=== PATIENT | male | born 1990 | race African-American/Black ===

== ENCOUNTER 2016-09-13 20:22 | Emergency (ER) | payer MEDICAID, OTHER ==
[~2016-09-13] VITALS: Ht 175.3 cm; Wt 79.0 kg
[~2016-09-13 20:22] MED LIST: COGENTIN; SEROQUEL
[2016-09-13 23:00] VITALS: BP 132/80
[2016-09-14] MEDS ORDERED: QUETIAPINE FUMARATE 25MG TABLET PO SCH (21:00)
== END 2016-09-14 00:42 | disposition home or self-care (01) ==
LOC: ER 20:22
DX: F41.9 Anxiety disorder, unspecified (principal); J06.9 Acute upper respiratory infection, unspecified; F20.9 Schizophrenia, unspecified; F31.9 Bipolar disorder, unspecified; J45.909 Unspecified asthma, uncomplicated; Z91.14 Patient's other noncompliance with medication regimen
CPT/HCPCS: 99283

== ENCOUNTER 2016-10-08 11:28 | Emergency (ER) | payer OTHER ==
[~2016-10-08] VITALS: Ht 180.3 cm; Wt 90.0 kg
[2016-10-08 11:28] VITALS: BP 126/78
== END 2016-10-08 14:46 | disposition left against medical advice (07) ==
LOC: ER 11:31
DX: R11.2 Nausea with vomiting, unspecified (principal); J45.909 Unspecified asthma, uncomplicated; F31.9 Bipolar disorder, unspecified
CPT/HCPCS: J7042

== ENCOUNTER 2016-10-23 04:25 | Emergency (ER) | payer OTHER ==
[~2016-10-23] VITALS: Ht 180.3 cm; Wt 84.0 kg
[2016-10-23 04:30] VITALS: BP 121/71
[2016-10-23] MEDS ORDERED: ACETAMINOPHEN 325MG TABLET PO ONE (05:15)
== END 2016-10-23 05:31 | disposition home or self-care (01) ==
LOC: ER 04:38
DX: R07.9 Chest pain, unspecified (principal); F20.9 Schizophrenia, unspecified; F17.210 Nicotine dependence, cigarettes, uncomplicated; F12.10 Cannabis abuse, uncomplicated
CPT/HCPCS: 71010; 93005; 99284; Z7610

== ENCOUNTER 2017-07-14 03:00 | Emergency (ER) | payer MEDICAID, OTHER ==
[~2017-07-14] VITALS: Ht 188 cm; Wt 80.0 kg
[2017-07-14] MEDS ORDERED: IBUPROFEN 600MG TABLET PO STA (06:27)
[2017-07-14 06:55] LABS: BASOPHILS % 0.6 % (0.0-2.0); HEMOGLOBIN. 13.2 g/dL (14.0-18.0); LYMPHOCYTES % 25.5 % (20.0-50.0); MEAN CORPUSCULAR VOLUME 99.8 fL (80.0-94.0); MEAN PLATELET VOLUME 8.7 fl (7.4-10.4); MONOCYTES % 12.6 % (2.0-8.0); NEUTROPHILS % 58.3 % (40.0-76.0); PLATELET 267 x1000/uL (130-400); RED BLOOD CELL COUNT 4.01 mill/uL (4.7-6.1); RED CELL DISTRIBUTION WIDTH 13.2 % (11.6-14.6)
[2017-07-14 07:06] LABS: CARBON DIOXIDE 31 mEq/L (21-32); CHLORIDE 101 mEq/L (98-107); ETHANOL BLOOD < 10 mg/dL
[2017-07-14 07:34] LABS: KETONES URINE TRACE (NEGATIVE); LEUKOCYTE ESTERASE URINE NEGATIVE (NEGATIVE); NITRITE URINE NEGATIVE (NEGATIVE); OCCULT BLOOD URINE NEGATIVE (NEGATIVE); PROTEIN URINE TRACE (NEGATIVE); SPECIFIC GRAVITY URINE 1.038 (1.005-1.030)
[2017-07-14 07:45] LABS: CLARITY URINE TURBID (CLEAR); COLOR URINE YELLOW (YELLOW)
[2017-07-14 08:03] LABS: *AMPHETAMINES SCREEN URINE PRESUMTIVE POSITIVE (NEGATIVE); *BARBITURATES SCREEN URINE NEGATIVE (NEGATIVE); *BENZODIAZEPINES SCREEN URINE NEGATIVE (NEGATIVE); *COCAINE SCREEN URINE NEGATIVE (NEGATIVE); CANNABINOID URINE SCREEN PRESUMTIVE POSITIVE (NEGATIVE); METHADONE URINE SCREEN NEGATIVE (NEGATIVE); OPIATES URINE SCREEN NEGATIVE (NEGATIVE); PHENCYCLIDINE URINE SCREEN NEGATIVE (NEGATIVE)
[2017-07-14 14:16] VITALS: BP 117/77
== END 2017-07-14 16:20 | disposition home or self-care (01) ==
LOC: ER 03:00
DX: R45.851 Suicidal ideations (principal); F20.9 Schizophrenia, unspecified; J45.909 Unspecified asthma, uncomplicated; F15.10 Other stimulant abuse, uncomplicated; R07.9 Chest pain, unspecified
CPT/HCPCS: 36415; 80053; 80305; 80307; 80329; 81001; 85025; 93005; 99285; G0482

== ENCOUNTER 2019-03-08 05:00 | Emergency (ER) | payer MEDICAID ==
[~2019-03-08] VITALS: Ht 193 cm; Wt 80.0 kg
[2019-03-08] MEDS ORDERED: OLANZAPINE 5MG TABLET ODT PO ONE (07:15)
[2019-03-08 14:16] LABS: HEMATOCRIT. 37.7 % (42.0-52.0); HEMOGLOBIN. 12.8 g/dL (14.0-18.0); MEAN CORPUSCULAR VOLUME 97.3 fL (80.0-94.0); MEAN PLATELET VOLUME 8.8 fl (7.4-10.4); PLATELET 214 x1000/uL (130-400); RED BLOOD CELL COUNT 3.87 mill/uL (4.7-6.1); RED CELL DISTRIBUTION WIDTH 12.8 % (11.6-14.6)
[2019-03-08 14:23] LABS: CHLORIDE 98 mEq/L (98-107)
[2019-03-08 14:28] LABS: ETHANOL BLOOD < 10 mg/dL
[2019-03-08 15:26] LABS: PLATELET ESTIMATE NORMAL
[2019-03-08 15:43] LABS: CLARITY URINE CLEAR (CLEAR); COLOR URINE YELLOW (YELLOW); KETONES URINE NEGATIVE (NEGATIVE); LEUKOCYTE ESTERASE URINE TRACE (NEGATIVE); NITRITE URINE NEGATIVE (NEGATIVE); OCCULT BLOOD URINE NEGATIVE (NEGATIVE); PH URINE 5.5 (4.5-8.0); PROTEIN URINE NEGATIVE (NEGATIVE); SPECIFIC GRAVITY URINE 1.022 (1.005-1.030)
[2019-03-08 16:05] LABS: *AMPHETAMINES SCREEN URINE PRESUMTIVE POSITIVE (NEGATIVE); *BARBITURATES SCREEN URINE NEGATIVE (NEGATIVE); *BENZODIAZEPINES SCREEN URINE NEGATIVE (NEGATIVE); *COCAINE SCREEN URINE NEGATIVE (NEGATIVE); CANNABINOID URINE SCREEN PRESUMTIVE POSITIVE (NEGATIVE); METHADONE URINE SCREEN NEGATIVE (NEGATIVE); OPIATES URINE SCREEN NEGATIVE (NEGATIVE); PHENCYCLIDINE URINE SCREEN NEGATIVE (NEGATIVE)
[2019-03-09] MEDS ORDERED: PHENYTOIN SODIUM EXTENDED 100MG CAPSULE PO ONE (15:00)
[2019-03-09 21:00] VITALS: BP 100/44
== END 2019-03-09 21:00 ==
LOC: ER 05:00
DX: R45.851 Suicidal ideations (principal); F20.9 Schizophrenia, unspecified; F17.200 Nicotine dependence, unspecified, uncomplicated; F31.9 Bipolar disorder, unspecified; Z59.0 Homelessness
CPT/HCPCS: 36415; 80305; 80307; 80320; 80329; 81003; 99284; G0480

== ENCOUNTER 2021-02-21 08:19 | Emergency (ER) | payer MEDICAID ==
[~2021-02-21] VITALS: Ht 172.7 cm; Wt 75.0 kg
[2021-02-21] MEDS ORDERED: OLANZAPINE 5MG TABLET ODT PO ONE (09:00)
[2021-02-21 09:30] LABS: CLARITY URINE CLEAR (CLEAR); COLOR URINE YELLOW (YELLOW); KETONES URINE 1+ (NEGATIVE); LEUKOCYTE ESTERASE URINE NEGATIVE (NEGATIVE); NITRITE URINE NEGATIVE (NEGATIVE); OCCULT BLOOD URINE NEGATIVE (NEGATIVE); PROTEIN URINE TRACE (NEGATIVE); SPECIFIC GRAVITY URINE 1.021 (1.005-1.030); UROBILINOGEN URINE 0.2 E.U./dL (0.2-1.0)
[2021-02-21] MEDS ORDERED: OLANZAPINE 5MG TABLET ODT PO SCH (09:40)
[2021-02-21 09:43] LABS: BASOPHILS % 0.5 % (0.0-2.0); EOSINOPHILS % 0.1 % (0.0-5.0); HEMATOCRIT. 38.8 % (42.0-52.0); HEMOGLOBIN. 13.2 g/dL (14.0-18.0); LYMPHOCYTES % 13.3 % (20.0-50.0); MEAN CORPUSCULAR HEMOGLOBIN 32.8 pg (28.0-32.0); MEAN PLATELET VOLUME 9.2 fl (7.4-10.4); MONOCYTES % 13.5 % (2.0-8.0); NEUTROPHILS % 72.6 % (40.0-76.0); PLATELET 305 x1000/uL (130-400); RED BLOOD CELL COUNT 4.04 mill/uL (4.7-6.1); RED CELL DISTRIBUTION WIDTH 13.8 % (11.6-14.6)
[2021-02-21 09:52] LABS: CHLORIDE 102 mEq/L (98-107)
[2021-02-21 09:56] LABS: ETHANOL BLOOD < 10 mg/dL
[2021-02-21 10:40] LABS: *BARBITURATES SCREEN URINE NEGATIVE (NEGATIVE); *BENZODIAZEPINES SCREEN URINE NEGATIVE (NEGATIVE); *COCAINE SCREEN URINE NEGATIVE (NEGATIVE); METHADONE URINE SCREEN NEGATIVE (NEGATIVE); OPIATES URINE SCREEN NEGATIVE (NEGATIVE); PHENCYCLIDINE URINE SCREEN PRESUMTIVE POSITIVE (NEGATIVE)
[2021-02-21 10:41] LABS: *AMPHETAMINES SCREEN URINE PRESUMTIVE POSITIVE (NEGATIVE); CANNABINOID URINE SCREEN PRESUMTIVE POSITIVE (NEGATIVE)
[2021-02-21] MEDS: RISPERIDONE 1MG TABLET PO SCH (16:12)
[2021-02-21] MEDS ORDERED: MIRTAZAPINE 30MG TABLET PO SCH (21:00)
[2021-02-22] MEDS: RISPERIDONE 1MG TABLET PO SCH ×3 (02:38→21:16)
[2021-02-22] MEDS: TRAZODONE HCL 50MG TABLET PO SCH ×2 (02:38→22:00)
[2021-02-22] MEDS: BENZTROPINE MESYLATE 1MG TABLET PO SCH ×2 (02:38→21:59)
[2021-02-22] MEDS: MIRTAZAPINE 15MG TABLET PO SCH ×2 (03:00→22:00)
[2021-02-22] MEDS: BUPROPION HCL 150MG TABLET XL 24HR PO SCH (09:32)
[2021-02-23] MEDS: BUPROPION HCL 150MG TABLET XL 24HR PO SCH (08:31)
[2021-02-23] MEDS: RISPERIDONE 1MG TABLET PO SCH ×2 (08:32→17:00)
[2021-02-23] MEDS: DIVALPROEX SODIUM 500MG ER TABLET PO SCH (11:38)
[2021-02-23] MEDS: BENZTROPINE MESYLATE 1MG TABLET PO SCH (21:00)
[2021-02-23] MEDS: MIRTAZAPINE 15MG TABLET PO SCH (21:00)
[2021-02-23] MEDS: TRAZODONE HCL 50MG TABLET PO SCH (21:00)
[2021-02-24] MEDS ORDERED: RISPERIDONE 1MG TABLET PO SCH (09:30)
[2021-02-24 10:00] VITALS: BP 122/86
[2021-02-24] MEDS: DIVALPROEX SODIUM 500MG ER TABLET PO SCH (15:14)
[2021-02-24] MEDS: BUPROPION HCL 150MG TABLET XL 24HR PO SCH (15:15)
== END 2021-02-24 17:49 ==
LOC: ER 08:19
DX: R45.851 Suicidal ideations (principal); F15.10 Other stimulant abuse, uncomplicated; F20.9 Schizophrenia, unspecified; F31.9 Bipolar disorder, unspecified; Z20.822 Contact with and (suspected) exposure to COVID-19
CPT/HCPCS: 36415; 71045; 80053; 80305; 80307; 80320; 80329; 81003; 85025; 87426; 99285; C9803; U0003; U0005; G0480